=== PATIENT | female | born 1995 | race Caucasian/White ===

== ENCOUNTER 2017-01-02 08:30 | Emergency (ER) | payer MEDICAID ==
[~2017-01-02] VITALS: Ht 177.8 cm; Wt 71.7 kg
[~2017-01-02 08:30] MED LIST: GUMMI BEAR MUL1 EACH PO
[2017-01-02] MEDS ORDERED: PRENATAL PLUS I1 TAB PO (10:00)
[2017-06-26] MEDS ORDERED: CELEXA20 MG PO (07:15)
[2017-06-28] MEDS ORDERED: MOTRIN800 MG PO (09:24)
[2017-06-28] MEDS ORDERED: COLACE100 MG PO (09:25)
== END 2017-01-02 09:50 | disposition short-term general hospital (02) ==
LOC: ER 08:30
DX: O23.41 Unspecified infection of urinary tract in pregnancy, first trimester (principal); Z3A.11 11 weeks gestation of pregnancy
CPT/HCPCS: J0696

== ENCOUNTER 2017-01-02 17:33 | Emergency (ER) | payer MEDICAID ==
[~2017-01-02] VITALS: Ht 177.8 cm; Wt 71.7 kg
[~2017-01-02 17:33] MED LIST changes: +PRENATAL PLUS I1 TAB PO
[2017-06-26] MEDS ORDERED: CELEXA20 MG PO (07:15)
[2017-06-28] MEDS ORDERED: MOTRIN800 MG PO (09:24)
[2017-06-28] MEDS ORDERED: COLACE100 MG PO (09:25)
== END 2017-01-02 19:23 | disposition short-term general hospital (02) ==
LOC: LAB 17:33 → ER 17:33
DX: O23.01 Infections of kidney in pregnancy, first trimester (principal); Z3A.12 12 weeks gestation of pregnancy